=== PATIENT | female | born 1940 | race Two or more races ===

== ENCOUNTER 2017-12-02 12:34 | Outpatient (CLI) | payer OTHER | END 2017-12-02 13:00 | disposition home or self-care (01) | LOC: NUCLEAR 12:34 | DX: M15.0 Primary generalized (osteo)arthritis (principal); M81.0 Age-related osteoporosis without current pathological fracture ==

== ENCOUNTER → 2018-04-16 09:28 | Outpatient (CLI) | payer OTHER | END | disposition home or self-care (01) | LOC: LAB 09:28 | DX: D50.8 Other iron deficiency anemias (principal); E03.8 Other specified hypothyroidism; E78.2 Mixed hyperlipidemia; I11.9 Hypertensive heart disease without heart failure; E56.8 Deficiency of other vitamins; N39.0 Urinary tract infection, site not specified; Z12.11 Encounter for screening for malignant neoplasm of colon; R19.5 Other fecal abnormalities; E55.9 Vitamin D deficiency, unspecified; N19 Unspecified kidney failure; N80.9 Endometriosis, unspecified ==

== ENCOUNTER 2018-07-30 08:44 | Outpatient (CLI) | payer OTHER | END 2018-07-30 08:59 | disposition home or self-care (01) | LOC: LAB 08:44 | DX: D50.8 Other iron deficiency anemias (principal); E03.8 Other specified hypothyroidism; E78.2 Mixed hyperlipidemia; I11.9 Hypertensive heart disease without heart failure; E56.8 Deficiency of other vitamins; N39.0 Urinary tract infection, site not specified; Z12.11 Encounter for screening for malignant neoplasm of colon; R19.5 Other fecal abnormalities; E55.9 Vitamin D deficiency, unspecified; N19 Unspecified kidney failure; E11.9 Type 2 diabetes mellitus without complications; R80.8 Other proteinuria; K92.1 Melena ==

== ENCOUNTER 2018-08-02 12:37 | Outpatient (CLI) | payer OTHER | END 2018-08-02 12:38 | disposition home or self-care (01) | LOC: LAB 12:37 | DX: N19 Unspecified kidney failure (principal); R80.8 Other proteinuria ==

== ENCOUNTER 2019-02-10 09:36 | Outpatient (CLI) | payer OTHER | END 2019-02-10 09:42 | disposition home or self-care (01) | LOC: LAB 09:36 | DX: D50.8 Other iron deficiency anemias (principal); E03.8 Other specified hypothyroidism; E78.2 Mixed hyperlipidemia; I11.9 Hypertensive heart disease without heart failure; E56.8 Deficiency of other vitamins; N39.0 Urinary tract infection, site not specified; Z12.11 Encounter for screening for malignant neoplasm of colon; E55.9 Vitamin D deficiency, unspecified; N19 Unspecified kidney failure; E11.9 Type 2 diabetes mellitus without complications; C18.0 Malignant neoplasm of cecum; K92.1 Melena; R80.8 Other proteinuria ==

== ENCOUNTER 2019-02-12 15:04 | Outpatient (CLI) | payer OTHER | END 2019-02-12 15:14 | disposition home or self-care (01) | LOC: LAB 15:04 | DX: D50.8 Other iron deficiency anemias (principal); E03.8 Other specified hypothyroidism; E78.2 Mixed hyperlipidemia; I11.9 Hypertensive heart disease without heart failure; E56.8 Deficiency of other vitamins; N39.0 Urinary tract infection, site not specified; Z12.11 Encounter for screening for malignant neoplasm of colon; E55.9 Vitamin D deficiency, unspecified; N19 Unspecified kidney failure; E11.9 Type 2 diabetes mellitus without complications; R80.8 Other proteinuria; C18.0 Malignant neoplasm of cecum; K92.1 Melena ==

== ENCOUNTER 2019-05-14 10:06 | Outpatient (CLI) | payer OTHER | END 2019-05-14 10:14 | disposition home or self-care (01) | LOC: LAB 10:06 | DX: E03.8 Other specified hypothyroidism (principal); D50.8 Other iron deficiency anemias; E78.2 Mixed hyperlipidemia; I11.9 Hypertensive heart disease without heart failure; E56.8 Deficiency of other vitamins; N39.0 Urinary tract infection, site not specified; Z12.11 Encounter for screening for malignant neoplasm of colon; E55.9 Vitamin D deficiency, unspecified; N19 Unspecified kidney failure; E11.9 Type 2 diabetes mellitus without complications; R80.8 Other proteinuria; C18.0 Malignant neoplasm of cecum; K92.1 Melena ==

== ENCOUNTER → 2019-08-13 09:31 | Outpatient (CLI) | payer OTHER | END | disposition home or self-care (01) | LOC: LAB 09:31 | DX: D50.8 Other iron deficiency anemias (principal); E03.8 Other specified hypothyroidism; E78.2 Mixed hyperlipidemia; I11.9 Hypertensive heart disease without heart failure; E56.8 Deficiency of other vitamins; N39.0 Urinary tract infection, site not specified; Z12.11 Encounter for screening for malignant neoplasm of colon; E55.9 Vitamin D deficiency, unspecified; N19 Unspecified kidney failure; E11.9 Type 2 diabetes mellitus without complications; R80.8 Other proteinuria; C18.0 Malignant neoplasm of cecum; K92.1 Melena ==

== ENCOUNTER 2019-12-02 09:46 | Outpatient (CLI) | payer OTHER | END 2019-12-02 09:51 | disposition home or self-care (01) | LOC: LAB 09:46 | DX: D50.8 Other iron deficiency anemias (principal); E03.8 Other specified hypothyroidism; E78.2 Mixed hyperlipidemia; I11.9 Hypertensive heart disease without heart failure; E56.8 Deficiency of other vitamins; N39.0 Urinary tract infection, site not specified; Z12.11 Encounter for screening for malignant neoplasm of colon; E55.9 Vitamin D deficiency, unspecified; N19 Unspecified kidney failure; E11.9 Type 2 diabetes mellitus without complications; R80.8 Other proteinuria; C18.0 Malignant neoplasm of cecum; K92.1 Melena ==

== ENCOUNTER 2019-12-27 10:22 | Outpatient (CLI) | payer OTHER | END 2019-12-27 10:31 | disposition home or self-care (01) | LOC: LAB 10:22 | DX: C20 Malignant neoplasm of rectum (principal); D12.5 Benign neoplasm of sigmoid colon ==

== ENCOUNTER → 2020-01-11 | Outpatient (CLI) | payer OTHER | END | disposition home or self-care (01) | LOC: TOM 07:15 | DX: C20 Malignant neoplasm of rectum (principal); D12.5 Benign neoplasm of sigmoid colon | CPT/HCPCS: 74177; Q9965 ==

== ENCOUNTER 2022-04-07 08:20 | Outpatient (CLI) | payer OTHER | END 2022-04-07 15:00 | disposition home or self-care (01) | LOC: LAB 08:20 | PROVIDERS: ATTEND Colon & Rectal Surgery | DX: D12.8 Benign neoplasm of rectum (principal); C20 Malignant neoplasm of rectum; Z86.010 Personal history of colon polyps; K92.1 Melena; Z20.822 Contact with and (suspected) exposure to COVID-19 ==

== ENCOUNTER 2022-04-11 08:15 | Inpatient (IN) | payer OTHER ==
[~2022-04-11] VITALS: Ht 152.4 cm; Wt 78.9 kg
[2022-04-14] MEDS ORDERED: TOPROL XL50 M1 PO (13:39)
[2022-04-14] MEDS ORDERED: TELMISARTAN-HC1 EACH PO (13:39)
[2022-04-14] MEDS ORDERED: ATORVASTATIN CA10 MG PO (13:40)
[2022-04-14] MEDS ORDERED: NORVASC5 MG PO (13:40)
[2022-04-14] MEDS ORDERED: METFORMIN HCL500 M3 PO (13:40)
[2022-04-14] MEDS ORDERED: DAFLONEX-XL 11300 MG PO (13:40)
[2022-04-14] MEDS ORDERED: D3 + K2 DOTS 11 EACH PO (13:41)
== END 2022-04-29 14:44 | disposition home or self-care (01) | DRG 329 ==
LOC: O/R 04-16 06:15 → SURH 04-16 06:15
PROVIDERS: ADMIT Colon & Rectal Surgery; ATTEND Colon & Rectal Surgery
PROC: 0DTP4ZZ Resection of Rectum, Percutaneous Endoscopic Approach (ICD-10-PCS; 2022-04-16)
PROC: 07BB4ZZ Excision of Mesenteric Lymphatic, Percutaneous Endoscopic Approach (ICD-10-PCS; 2022-04-16)
PROC: 07BC4ZZ Excision of Pelvis Lymphatic, Percutaneous Endoscopic Approach (ICD-10-PCS; 2022-04-16)
PROC: 0DTN4ZZ Resection of Sigmoid Colon, Percutaneous Endoscopic Approach (ICD-10-PCS; principal; 2022-04-16 07:00)
PROC: 02HV33Z Insertion of Infusion Device into Superior Vena Cava, Percutaneous Approach (ICD-10-PCS; 2022-04-21)
PROC: 4A12X4Z Monitoring of Cardiac Electrical Activity, External Approach (ICD-10-PCS; 2022-04-22)
DX: C20 Malignant neoplasm of rectum (principal); I21.A1 Myocardial infarction type 2; K91.89 Other postprocedural complications and disorders of digestive system; K56.7 Ileus, unspecified; D64.9 Anemia, unspecified; I48.0 Paroxysmal atrial fibrillation; F43.20 Adjustment disorder, unspecified; I11.9 Hypertensive heart disease without heart failure; E11.9 Type 2 diabetes mellitus without complications; K21.9 Gastro-esophageal reflux disease without esophagitis; E66.9 Obesity, unspecified; E78.5 Hyperlipidemia, unspecified; I87.2 Venous insufficiency (chronic) (peripheral); K29.70 Gastritis, unspecified, without bleeding; Z68.27 Body mass index [BMI] 27.0-27.9, adult; Z79.84 Long term (current) use of oral hypoglycemic drugs

== ENCOUNTER 2023-12-29 02:10 | Emergency (ER) | payer OTHER ==
[~2023-12-29] VITALS: Ht 167.6 cm; Wt 77.1 kg
[~2023-12-29 02:10] MED LIST: ATORVASTATIN CA10 MG PO; D3 + K2 DOTS 11 EACH PO; DAFLONEX-XL 11300 MG PO; METFORMIN HCL500 M3 PO; NORVASC5 MG PO; TELMISARTAN-HC1 EACH PO; TOPROL XL50 M1 PO
[2023-12-29] MEDS ORDERED: SYNTHROID50 MCG PO (02:13)
[2023-12-29] MEDS ORDERED: RINGERS SOLUTION,LACTATED 1,000 ML IV STA (03:30)
[2023-12-29] MEDS ORDERED: HYOSCYAMINE SULFATE 0.125 MG TAB.SUBL SL STA (03:31)
[2023-12-29] MEDS ORDERED: PROMETHAZINE HCL 25 MG/ML AMPUL IM STA (03:32)
[2023-12-29] MEDS ORDERED: MEPERIDINE HCL/PF 25 MG/ML VIAL IM STA (03:32)
[2023-12-29 04:09] LABS: HEMATOCRIT 28.2 % (36.0-45.00); MEAN CORPUSCULAR HGB CONC 31.7 g/dl (32.0-36.0); PLATELET COUNT 379 K/uL (150-450); RED BLOOD COUNT 3.48 M/uL (4.00-6.00)
[2023-12-29 04:12] LABS: HEMOGLOBIN 8.9 g/dL (12.0-15.00); MEAN CORPUSCULAR HEMOGLOBIN 25.5 pg (27.00-32.0)
[2023-12-29 04:23] LABS: INR 1.17; PROTHROMBIN TIME 12.1 SECONDS (9.0-11.5)
[2023-12-29 04:25] LABS: ALBUMIN 2.9 gm/dL (3.4-5.0); BILIRUBIN TOTAL 0.47 mg/dL (0.3-1.2); CALCIUM 8.8 mg/dL (8.5-10.1); GFR 41.13; GLOBULINA 4.3 G/DL (2.4-3.5); POTASSIUM 3.44 mEq/L (3.5-5.1); TOTAL PROTEIN 7.2 gm/dL (6.4-8.2)
[2023-12-29 04:26] LABS: CREATININE SERUM 1.25 mg/dL (0.55-1.02)
[2023-12-29 06:57] LABS: URINE APPEARANCE Clear; URINE BILIRRUBIN Negative (NEGATIVE); URINE BLOOD Trace; URINE COLOR Yellow; URINE GLUCOSE Negative (NEGATIVE); URINE LEUKOCYTE Small; URINE NITRATE Negative; URINE PROTEIN Trace (NEGATIVE); URINE UROBILINOGEN 0.2 E.U./dl
[2023-12-29 07:06] LABS: URINE BACTERIA 342.6 uL (0.0-1933); URINE EPITHELIAL CELLS 33.2 uL (0.0-38.8); URINE RBC 18.1 uL (0.0-20.8); URINE WBC 60.6 uL (0.0-23.2)
== END 2023-12-29 10:19 | disposition home or self-care (01) ==
LOC: ER 02:10
DX: R10.9 Unspecified abdominal pain (principal); Z88.1 Allergy status to other antibiotic agents
CPT/HCPCS: 36415; 74177; 96372; 99284; J3490 ×2; Q9965

== ENCOUNTER 2024-02-08 12:50 | Inpatient (IN) | payer OTHER ==
[~2024-02-08] VITALS: Ht 165.1 cm; Wt 72.6 kg
[~2024-02-08 12:50] MED LIST changes: +SYNTHROID50 MCG PO
[2024-02-08] MEDS ORDERED: SODIUM CHLORIDE 0.45 % 1,000 ML IV SCH (13:30)
[2024-02-08] MEDS ORDERED: SODIUM BICARBONATE 1 MEQ/ML DISP.SYRIN 50ML IV ONE (13:45)
[2024-02-08] MEDS ORDERED: PIPERACILLIN/TAZOBACTAM SODIUM 3.375 GM in 0.9 % SODIUM CHLORIDE 100 ML IV SCH (13:59)
[2024-02-08 14:06] LABS: MEAN CORPUSCULAR HGB CONC 32.8 g/dl (32.0-36.0); PLATELET COUNT 285 K/uL (150-450); RED CELL DISTRIBUTION WIDTH 17.6 % (11.5-14.5)
[2024-02-08 14:14] LABS: MEAN CORPUSCULAR HEMOGLOBIN 24.4 pg (27.00-32.0)
[2024-02-08 14:17] LABS: HEMOGLOBIN 7.1 g/dL (12.0-15.00)
[2024-02-08 14:18] LABS: HEMATOCRIT 21.8 % (36.0-45.00)
[2024-02-08 14:25] LABS: INR 1.43; PARTIAL THROMBOPLASTIN TIME 26.2 SECONDS (22.0-34.0)
[2024-02-08 14:26] LABS: ALBUMIN 2.2 gm/dL (3.4-5.0); BILIRUBIN TOTAL 0.52 mg/dL (0.3-1.2); CALCIUM 7.8 mg/dL (8.5-10.1); GLOBULINA 4.6 G/DL (2.4-3.5); TOTAL PROTEIN 6.8 gm/dL (6.4-8.2)
[2024-02-08 14:28] LABS: PROTHROMBIN TIME 14.6 SECONDS (9.0-11.5)
[2024-02-08 14:34] LABS: ABG PH 7.393 (7.35-7.45)
[2024-02-08 14:36] LABS: ABG PO2 91.2 mmHg (80-100); ABG pCO2 18.4 mmHg (35-45); BASE EXCESS -11.1 mmol/l; BICARBONATE 10.9 mmol/l (23-25); SaO2 96.6 %; Tco2 11.5 mmol/l; allen test SATISFACTORY; o2 32 %; puncture site RADIAL RIGHT
[2024-02-08 14:41] LABS: GFR 4.38
[2024-02-08 14:44] LABS: CREATININE SERUM 8.71 mg/dL (0.55-1.02); POTASSIUM 6.42 mEq/L (3.5-5.1)
[2024-02-08] MEDS ORDERED: DEXTROSE 5 % AND 0.9 % NACL 1,000 ML IV SCH (15:00)
[2024-02-08] MEDS ORDERED: FAMOTIDINE/PF 20 MG/10 ML SYRINGE IV SCH (15:11)
[2024-02-08] MEDS ORDERED: hydrALAZINE HCL 20 MG VIAL IV PRN (15:15)
[2024-02-08] MEDS ORDERED: fentaNYL 50 MCG PATCH.TD72 TD SCH (15:15)
[2024-02-08] MEDS ORDERED: FUROsemide 20 MG/2 ML VIAL IV SCH (15:15)
[2024-02-08] MEDS ORDERED: FUROsemide 20 MG/2 ML VIAL IV STA (15:17)
[2024-02-08] MEDS ORDERED: DEXTROSE 50 % IN WATER 0.5 G/ML DISP.SYRIN IV PRN (15:30)
[2024-02-08] MEDS ORDERED: INSULIN LISPRO 1,000 UNIT/10 ML UNITS SUBCUTANEO PRN (15:30)
[2024-02-08] MEDS ORDERED: EMOLLIENTS 6 OZ BOTTLE TOP SCH (17:00)
[2024-02-08] MEDS ORDERED: ENOXAPARIN SODIUM 30 MG/0.3 ML SYRINGE SUBCUTANEO SCH (17:00)
[2024-02-08] MEDS ORDERED: PIPERACILLIN/TAZOBACTAM SODIUM 2.25 GM in 0.9 % SODIUM CHLORIDE 50 ML IV SCH (17:00)
[2024-02-09] MEDS ORDERED: LEVOTHYROXINE SODIUM 50 MCG TABLET PO SCH (06:00)
== END 2024-02-08 18:04 | disposition expired | DRG 683 ==
LOC: ER 12:50 → SEC-K 15:51
PROVIDERS: General Practice; ADMIT Internal Medicine Geriatric Medicine; ATTEND Internal Medicine Geriatric Medicine
PROC: 4A033R1 Measurement of Arterial Saturation, Peripheral, Percutaneous Approach (ICD-10-PCS; principal; 2024-02-08)
DX: N17.9 Acute kidney failure, unspecified (principal); C20 Malignant neoplasm of rectum; R18.0 Malignant ascites; E87.20 Acidosis, unspecified; Z20.822 Contact with and (suspected) exposure to COVID-19; Z66 Do not resuscitate; D70.1 Agranulocytosis secondary to cancer chemotherapy; T45.1X5A Adverse effect of antineoplastic and immunosuppressive drugs, initial encounter; Y92.9 Unspecified place or not applicable; E86.0 Dehydration